=== PATIENT | male | born 1990 | race Caucasian/White ===

== ENCOUNTER 2020-03-08 06:38 | Emergency (ER) | payer BC ==
[2020-03-08] MEDS ORDERED: HYDROcodone/Acetaminophen 5/325 mg Tablet ONE (07:13)
[2020-03-08] MEDS ORDERED: Ketorolac Tromethamine 30 MG/ML VIAL ONE (07:14)
--- NOTE | 2020-03-08 07:36 | RAD ---
Exam:Left knee 4 views HISTORY: Pain and effusion COMPARISON: None FINDINGS: Small joint effusion. Preserved joint spaces. No fracture or malalignment. IMPRESSION: Small joint effusion. If there is concern for internal derangement, consider MRI
== END 2020-03-08 08:10 | disposition home or self-care (01) ==
LOC: ERS 06:38
DX: M25.462 Effusion, left knee (principal); F41.9 Anxiety disorder, unspecified; Z79.899 Other long term (current) drug therapy
CPT/HCPCS: 96372; J1885

== ENCOUNTER 2020-06-23 15:05 | Outpatient (CLI) | payer BC ==
--- NOTE | 2020-06-23 15:33 | ULT ---
THYROID ULTRASOUND INDICATION: Neck pain in the region of the thyroid gland TECHNIQUE: Grayscale and color Doppler images were obtained of the thyroid gland. COMPARISON: None FINDINGS: Right thyroid lobe: The right thyroid lobe measures 2.0 x 4.9 x 1.6 cm. Thyroid isthmus: The thyroid isthmus measures 0.41 cm. Left thyroid lobe: The left thyroid lobe measures 2.0 x 5.2 x 1.7 cm. There is a 3 x 4 x 3 mm hypoech oic mixed cystic and solid nodule involving inferior pole of the left thyroid lobe. IMPRESSION: 1. Small subcentimeter TIRADS 3 lesion of the lower pole left thyroid gland. No sonographic follow up is recommended.
== END 2020-06-23 15:06 | disposition home or self-care (01) ==
LOC: SCSULT 15:05
PROVIDERS: ATTEND Internal Medicine
DX: E07.89 Other specified disorders of thyroid (principal)
CPT/HCPCS: 76536